=== PATIENT | female | born 1990 | race Two or more races ===

== ENCOUNTER 2016-09-07 07:44 | Emergency (ER) | payer OTHER ==
[2016-09-07] MEDS ORDERED: OXYCODONE/APAP 5/325 TAB PO ONE (08:06)
[2016-09-07 08:07] VITALS: BP 117/80; PULSE 104; RESP 16; TEMP 98.5; O2SAT 100
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
== END 2016-09-07 08:15 | disposition home or self-care (01) ==
LOC: CED 07:44
DX: M54.5 Low back pain (principal); G89.29 Other chronic pain
CPT/HCPCS: 99214-PO; G0463-PO